=== PATIENT | female | born 1960 | race American Indian/Alaskan Native ===

== ENCOUNTER 2019-12-30 20:59 | Emergency (ER) | payer BC ==
[2019-12-30 21:13] VITALS: PULSE 74
--- NOTE | 2019-12-30 21:24 | EDM.PDOC ---
ED HPI GENERAL MEDICAL PROBLEM - General Chief Complaint: ENT Problem Stated Complaint: nose bleed Time Seen by Provider: 12/30/19 21:15 Source of Information: Reports: Patient History Limitations: Reports: No Limitations - History of Present Illness INITIAL COMMENTS - FREE TEXT/NARRATIVE: States that she had been golfing and when done went to [employer] and while there her nose started to spontaneously bleed. She denies any trauma to her nose and denies any other nose bleeds in the past. Nose bleed had stopped approximately 30 minutes prior to arrival here. Nose bleed had started about 7:30 and continued to about 8:30. She states that she feels normal at this time. Onset: Today - Related Data Allergies Allergy/AdvReac Type Severity Reaction Status Date / Time No Known Allergies Allergy Verified 12/30/19 21:00 Home Meds: Home Meds Cetirizine HCl/Pseudoephedrine [Zyrtec-D Tablet] 1 each PO DAILY 05/05/13 [History] Hydrochlorothiazide 25 mg PO DAILY 05/05/13 [History] Zolpidem Tartrate [Zolpidem Tartrate ER] 10 mg PO QPM 05/05/13 [History] Albuterol [Proventil HFA] 2 puff INH Q6HR PRN 04/28/16 [History] Fluticasone/Vilanterol [Breo Ellipta 200-25 MCG Inhalation Kit] 1 puff IH DAILY 06/06/19 [History] Levothyroxine Sodium [Synthroid] 25 mcg PO DAILY 06/06/19 [History] Omalizumab [Xolair] 75 mg SQ ASDIRECTED 06/06/19 [History] Umeclidinium [place] [Incruse Ellipta*] 1 puff IH DAILY 06/06/19 [History] Magnesium 1 tab PO DAILY 12/30/19 [History] Potassium Chloride [Klor-Con 10] 1 tab PO DAILY 12/30/19 [History] Past Medical History - Past Health History Medical/Surgical History: Denies Medical/Surgical History HEENT History: Reports: Impaired Vision, Otitis Media Cardiovascular History: Reports: Hypertension Respiratory History: Reports: Asthma Gastrointestinal History: Reports: None, Other (See Below) Other Gastrointestinal History: giardia, h pylori October 2019 Genitourinary History: Reports: None [employer]CHO[employer] EDITOR History: Reports: Musculoskeletal History: Reports: None Neurological History: Reports: None Psychiatric History: Reports: None Endocrine/Metabolic History: Reports: Hypothyroidism, Obesity/BMI 30+ Hematologic History: Reports: None Immunologic History: Reports: None Oncologic (Cancer) History: Reports: None Dermatologic History: Reports: None - Infectious Disease History Infectious Disease History: Reports: None - Past Surgical History Head Surgeries/Procedures: Reports: None HEENT Surgical History: Reports: Myringotomy w Tube(s) Social & Family History - Family History Family Medical History: Noncontributory - Tobacco Use Smoking Status *Q: Never Smoker - Caffeine Use Caffeine Use: Reports: Coffee - Recreational Drug Use Recreational Drug Use: No - Living Situation & Occupation Living situation: Reports: with Family Occupation: Employed ED ROS ENT - Review of Systems Review Of Systems: See Below Constitutional: Denies: Fever, Chills HEENT: Reports: Nosebleed ED EXAM, ENT - Physical Exam Exam: See Below Exam Limited By: No Limitations General Appearance: Alert, WD/WN Nose: Dried Blood. No: Nasal Deformity, Nasal Tenderness, Active Bleeding Mouth/Throat: Normal Inspection Course - Vital Signs Last Recorded V/S: Last Vital Signs Temp 99.2 F 12/30/19 21:06 Pulse 74 12/30/19 21:06 Resp 16 12/30/19 21:06 BP 147/92 H 12/30/19 21:26 Pulse Ox 95 12/30/19 21:06 - Re-Assessments/Exams Free Text/Narrative Re-Assessment/Exam: 12/30/19 21:30 Offered to pack it. Discussed that because it has already s topped for at least 45 minutes that not doing anything is appropriate. She has decided not to pack it at this time. Departure - Departure Time of Disposition: 21:27 Disposition: Home, Self-Care 01 Condition: Good Clinical Impression: Epistaxis - Discharge Information *PRESCRIPTION DRUG MONITORING PROGRAM REVIEWED*: Not Applicable *COPY OF PRESCRIPTION DRUG MONITORING REPORT IN PATIENT BARNEY: Not Applicable Instructions: Nosebleed, [id number] Referrals: Marina Mccoy SENIOR JAVA PROGRAMMER [Primary Care Provider] - Forms: ED Department Discharge Additional Instructions: Do not rub or blow nose. If running just lightly dab at it If bleeding starts again then hold tight pressure across the bridge of nose and hold it for at least 10 minutes. Have BP rechecked in the next 2-3 days to make sure it comes down. Recheck with any new concerns as needed. Sepsis Event Note (ED) - Evaluation Sepsis Screening Result: No Definite Risk - Focused Exam Vital Signs: Vital Signs Temp Pulse Resp BP Pulse Ox 12/30/19 21:26 147/92 H 12/30/19 21:13 157/92 H 12/30/19 21:06 99.2 F 74 16 159/94 H 95 - Problem List & Annotations (1) Epistaxis SNOMED Code(s): 787644568 Code(s): R04.0 - EPISTAXIS Status: Acute Priority: High - Problem List Review Problem List Initiated/Reviewed/Updated: Yes
[2019-12-30 21:27] VITALS: BP 147/92
== END 2019-12-30 21:33 | disposition home or self-care (01) ==
LOC: CC.ED 20:59
DX: R04.0 Epistaxis (principal); I10 Essential (primary) hypertension; J45.909 Unspecified asthma, uncomplicated; E03.9 Hypothyroidism, unspecified; E66.9 Obesity, unspecified; Z68.33 Body mass index [BMI] 33.0-33.9, adult; Z79.899 Other long term (current) drug therapy
CPT/HCPCS: 99283